=== PATIENT | female | born 1950 | race African-American/Black ===

== ENCOUNTER 2018-07-17 07:19 | Inpatient (IN) ==
[2018-07-17 09:00] LABS: Basophils # 0.1 10*3/uL (0.0-0.2); Basophils % 0.6 % (0.0-0.8); Eosinophils # 0.1 10*3/uL (0.0-0.87); Eosinophils % 1.4 % (0.00-10.9); Hematocrit 40.2 VOL% (35.7-47.0); Hemoglobin 13.2 GM/DL (12.0-16.0); Immature Granulocytes Absolute 0.08 #; Lymphocytes # 1.7 10*3/uL (1.4-4.0); Lymphocytes % 20.4 % (21.3-54.2); Mean Corpuscular HGB Conc 32.8 GM/DL (32-36); Mean Corpuscular Hemoglobin 27 PG (27-34); Mean Corpuscular Volume 82.9 FL (87-102); Mean Platelet Volume 11.1 FL (9.6-12.0); Monocytes # 0.8 10*3/uL (0.11-0.8); Monocytes % 9.3 % (1.7-12.7); Neutrophils # 5.6 10*3/uL (1.4-7.4); Neutrophils % 67.3 % (38.7-73.9); Platelet Count 273 T/CUMM (130-400); Red Blood Count 4.85 MC/CUMM (3.8-5.5); Red Cell Distribution Width 13.9 % (9.3-17.3); White Blood Count 8.4 T/CUMM (4-12)
[2018-07-17 09:29] LABS: Calcium 9.3 MG/DL (8.5-10.1); Osmolality,Calculated 283.3 MOS/KG (273-304); Potassium 3.7 MMOL/L (3.5-5.1)
[2018-07-17] MEDS ORDERED: ACETAMINOPHEN 500 MG TABLET PO STA (09:29)
[2018-07-17 10:02] LABS: Apearance,Urine Slightly Hazy (Clear); Bacteria,Urine Many /HPF (Few); Bilirubin,Urine Negative (Negative); Blood, Urine Moderate mg/dL (Negative); Glucose,Urine (UA) Negative (Negative); Ketones,Urine Negative (Negative); Mucus,Urine Occasional /LPF (Occasional); Nitrite,Urine Positive (Negative); Protein,Urine Negative; RBC,Urine 3 /HPF (0-4); Urine Color Yellow (Yellow); Urine Specific Gravity 1.016 (1.001-1.035); Urine Urobilinogen < 2.0 EU/DL (0.2-1.0); WBC,Urine 12 /HPF (0-6)
[2018-07-17 10:05] LABS: Barbiturates Screen,Urine Negative (Negative); Benzodiazepines Screen,Urine Negative (Negative); Cannabinoid Screen,Urine Negative (Negative); Opiate Screen,Urine Negative (Negative); Phencyclidine Screen,Urine Negative (Negative)
[2018-07-17] MEDS ORDERED: hydrALAZINE 20 MG/1 ML VIAL IV STA (13:51)
[2018-07-17] MEDS ORDERED: ONDANSETRON 4 MG/2 ML VIAL IV PRN (15:25)
[2018-07-17] MEDS ORDERED: LABETALOL 20 MG/4 ML SYRINGE IV PRN (15:28)
[2018-07-17] MEDS ORDERED: ENOXAPARIN 40 MG/0.4 ML SYRINGE SUBCUT SCH (15:30)
[2018-07-17 17:02] LABS: Risk Ratio 2.71; VLDL CHOLESTEROL 21.8 MG/DL
[2018-07-17] MEDS: SODIUM CHLORIDE 0.9% 1,000 ML IV SCH (17:12)
[2018-07-17] MEDS: ASPIRIN 325 MG TABLET PO SCH (17:22)
[2018-07-17] MEDS: ATORVASTATIN 20 MG TABLET PO SCH (17:22)
[2018-07-17] MEDS: cefTRIAXone 1,000 MG in SYRINGE 1 EACH IV SCH (17:23)
[2018-07-17] MEDS: ATENOLOL 50 MG TABLET PO SCH ×2 (19:50→20:02)
[2018-07-17] MEDS: hydrALAZINE 20 MG/1 ML VIAL IV PRN (20:56)
[2018-07-18] MEDS: hydrALAZINE 20 MG/1 ML VIAL IV PRN (04:44)
[2018-07-18] MEDS: SODIUM CHLORIDE 0.9% 1,000 ML IV SCH ×2 (04:47→17:56)
[2018-07-18] MEDS: ACETAMINOPHEN 325 MG TABLET PO PRN ×2 (05:15→08:54)
[2018-07-18 06:29] LABS: Basophils # 0.1 10*3/uL (0.0-0.2); Basophils % 0.7 % (0.0-0.8); Eosinophils # 0.1 10*3/uL (0.0-0.87); Eosinophils % 1.3 % (0.00-10.9); Hematocrit 36.9 VOL% (35.7-47.0); Hemoglobin 12.2 GM/DL (12.0-16.0); Immature Granulocytes % 0.9 %; Immature Granulocytes Absolute 0.08 #; Lymphocytes # 1.9 10*3/uL (1.4-4.0); Lymphocytes % 20.9 % (21.3-54.2); Mean Corpuscular HGB Conc 33.1 GM/DL (32-36); Mean Corpuscular Hemoglobin 27 PG (27-34); Mean Corpuscular Volume 81.8 FL (87-102); Mean Platelet Volume 11.6 FL (9.6-12.0); Monocytes # 0.9 10*3/uL (0.11-0.8); Neutrophils % 66.2 % (38.7-73.9); Platelet Count 280 T/CUMM (130-400); Red Blood Count 4.51 MC/CUMM (3.8-5.5)
[2018-07-18 06:55] LABS: Calcium 8.5 MG/DL (8.5-10.1); Osmolality,Calculated 275.7 MOS/KG (273-304); Potassium 3.3 MMOL/L (3.5-5.1)
[2018-07-18] MEDS: IPRATROPIUM 500 MCG/2.5 ML NEB RESP TX SCH ×4 (07:33→19:05)
[2018-07-18] MEDS: PANTOPRAZOLE 40 MG TABLET PO SCH (08:54)
[2018-07-18] MEDS: ASPIRIN 325 MG TABLET PO SCH (08:54)
[2018-07-18] MEDS: LOSARTAN/HCTZ 50-12.5 MG TABLET PO SCH (08:54)
[2018-07-18] MEDS: ATORVASTATIN 20 MG TABLET PO SCH (08:54)
[2018-07-18] MEDS: ATENOLOL 50 MG TABLET PO SCH ×2 (08:54→20:23)
[2018-07-18] MEDS: FLUTICASONE 50 MCG NASAL SPRAY 16 GM BOTTLE BOTH NARES SCH (08:55)
[2018-07-18] MEDS: POTASSIUM CHLORIDE 20 MEQ TABLET PO PRN ×3 (11:31→15:52)
[2018-07-18] MEDS: CLOPIDOGREL 75 MG TABLET PO SCH (15:52)
[2018-07-18] MEDS: cefTRIAXone 1,000 MG in SYRINGE 1 EACH IV SCH (17:51)
[2018-07-18] MEDS ORDERED: ALUM/MAG/SIMETH/LIDO VISC 1:1 30 ML BOTTLE PO ONE (20:09)
[2018-07-19] MEDS: hydrALAZINE 20 MG/1 ML VIAL IV PRN ×2 (00:55→08:15)
[2018-07-19 06:15] LABS: Basophils % 0.5 % (0.0-0.8); Eosinophils # 0.2 10*3/uL (0.0-0.87); Eosinophils % 2.1 % (0.00-10.9); Hematocrit 37.4 VOL% (35.7-47.0); Hemoglobin 12.2 GM/DL (12.0-16.0); Immature Granulocytes % 0.6 %; Immature Granulocytes Absolute 0.05 #; Lymphocytes # 2.7 10*3/uL (1.4-4.0); Lymphocytes % 31.3 % (21.3-54.2); Mean Corpuscular HGB Conc 32.6 GM/DL (32-36); Mean Corpuscular Hemoglobin 27 PG (27-34); Mean Corpuscular Volume 83.1 FL (87-102); Mean Platelet Volume 11.7 FL (9.6-12.0); Monocytes # 0.9 10*3/uL (0.11-0.8); Monocytes % 10.6 % (1.7-12.7); Neutrophils # 4.7 10*3/uL (1.4-7.4); Neutrophils % 54.9 % (38.7-73.9); Platelet Count 229 T/CUMM (130-400); White Blood Count 8.6 T/CUMM (4-12)
[2018-07-19 06:33] LABS: Calcium 7.7 MG/DL (8.5-10.1); Potassium 3.6 MMOL/L (3.5-5.1)
[2018-07-19] MEDS: IPRATROPIUM 500 MCG/2.5 ML NEB RESP TX SCH ×4 (07:01→19:49)
[2018-07-19] MEDS: CLOPIDOGREL 75 MG TABLET PO SCH (08:12)
[2018-07-19] MEDS: ASPIRIN 325 MG TABLET PO SCH (08:12)
[2018-07-19] MEDS: PANTOPRAZOLE 40 MG TABLET PO SCH (08:12)
[2018-07-19] MEDS: ATENOLOL 50 MG TABLET PO SCH ×2 (08:12→20:14)
[2018-07-19] MEDS: LOSARTAN/HCTZ 50-12.5 MG TABLET PO SCH (08:12)
[2018-07-19] MEDS: ATORVASTATIN 20 MG TABLET PO SCH (08:12)
[2018-07-19] MEDS: FLUTICASONE 50 MCG NASAL SPRAY 16 GM BOTTLE BOTH NARES SCH (08:21)
[2018-07-19] MEDS: hydrALAZINE 25 MG TABLET PO SCH ×2 (10:48→20:14)
[2018-07-19] MEDS: SODIUM CHLORIDE 0.9% 1,000 ML IV SCH ×2 (16:15→21:00)
[2018-07-19] MEDS: cefTRIAXone 1,000 MG in SYRINGE 1 EACH IV SCH (16:28)
[2018-07-19] MEDS: ACETAMINOPHEN 325 MG TABLET PO PRN (18:26)
[2018-07-20] MEDS: hydrALAZINE 20 MG/1 ML VIAL IV PRN (04:46)
[2018-07-20] MEDS: IPRATROPIUM 500 MCG/2.5 ML NEB RESP TX SCH ×3 (07:20→13:45)
[2018-07-20] MEDS: PANTOPRAZOLE 40 MG TABLET PO SCH (09:27)
[2018-07-20] MEDS: hydrALAZINE 25 MG TABLET PO SCH (09:27)
[2018-07-20] MEDS: ATORVASTATIN 20 MG TABLET PO SCH (09:27)
[2018-07-20] MEDS: ATENOLOL 50 MG TABLET PO SCH (09:27)
[2018-07-20] MEDS: LOSARTAN/HCTZ 50-12.5 MG TABLET PO SCH (09:27)
[2018-07-20] MEDS: CLOPIDOGREL 75 MG TABLET PO SCH (09:27)
[2018-07-20] MEDS: ASPIRIN 325 MG TABLET PO SCH (09:27)
[2018-07-20] MEDS: FLUTICASONE 50 MCG NASAL SPRAY 16 GM BOTTLE BOTH NARES SCH (09:35)
[2018-07-20] MEDS ORDERED: TUBERCULIN SKIN TEST 0.1 ML SYRINGE INTRADERM ONE (11:00)
[2018-07-20 16:47] VITALS: BP 167/77
== END 2018-07-20 19:30 | DRG 65 ==
LOC: N.EDINP 07:19 → N.ED 07:19 → SUATTDRO 15:25 → N.2E 15:42
PROVIDERS: ADMIT Internal Medicine; ATTEND Internal Medicine

== ENCOUNTER 2018-10-17 03:05 | Inpatient (IN) ==
[2018-10-17 03:34] LABS: Basophils % 0.1 % (0.0-0.8); Hematocrit 32.3 VOL% (35.7-47.0); Immature Granulocytes % 0.8 %; Immature Granulocytes Absolute 0.06 #; Lymphocytes # 1.1 10*3/uL (1.4-4.0); Lymphocytes % 14.7 % (21.3-54.2); Mean Corpuscular HGB Conc 34.1 GM/DL (32-36); Mean Corpuscular Hemoglobin 28 PG (27-34); Mean Platelet Volume 11.3 FL (9.6-12.0); Monocytes # 0.4 10*3/uL (0.11-0.8); Monocytes % 4.8 % (1.7-12.7); Neutrophils # 6.1 10*3/uL (1.4-7.4); Neutrophils % 79.6 % (38.7-73.9); Platelet Count 300 T/CUMM (130-400); Red Blood Count 3.89 MC/CUMM (3.8-5.5); White Blood Count 7.7 T/CUMM (4-12)
[2018-10-17] MEDS ORDERED: levETIRAcetam 500 MG/5 ML VIAL IV ONE (03:34)
[2018-10-17 03:47] LABS: Apearance,Urine Slightly Hazy (Clear); Bilirubin,Urine Negative (Negative); Blood, Urine Negative (Negative); Glucose,Urine (UA) Negative (Negative); Hyaline Casts,Urine 17 /LPF (0-3); Ketones,Urine 5 mg/dL (Negative); Mucus,Urine Occasional /LPF (Occasional); Nitrite,Urine Negative (Negative); Protein,Urine Negative; RBC,Urine 1 /HPF (0-4); Squamous Epithelial Cell,Urine Occasional /HPF (0-10); Urine Color Yellow (Yellow); Urine Specific Gravity 1.012 (1.001-1.035); Urine Urobilinogen < 2.0 EU/DL (0.2-1.0); WBC,Urine 4 /HPF (0-6)
[2018-10-17 03:48] LABS: Albumin 3.4 G/DL (3.4-5.0); Bilirubin,Total 0.7 MG/DL (0.2-1.0); Calcium 9.2 MG/DL (8.5-10.1); Potassium 2.7 MMOL/L (3.5-5.1); Total Protein 6.9 G/DL (6.4-8.3)
[2018-10-17] MEDS ORDERED: LORazepam 2 MG/1 ML VIAL ONE (03:57)
[2018-10-17] MEDS ORDERED: LORazepam 2 MG/1 ML VIAL IV STA (03:57)
[2018-10-17] MEDS ORDERED: ONDANSETRON 4 MG/2 ML VIAL ONE (04:00)
[2018-10-17 04:05] LABS: Barbiturates Screen,Urine Negative (Negative); Benzodiazepines Screen,Urine Positive (Negative); Cannabinoid Screen,Urine Negative (Negative); Opiate Screen,Urine Negative (Negative); Phencyclidine Screen,Urine Negative (Negative)
[2018-10-17] MEDS ORDERED: ONDANSETRON 4 MG/2 ML VIAL IV PRN (04:53)
[2018-10-17] MEDS ORDERED: traMADol 50 MG TABLET PO PRN (04:57)
[2018-10-17] MEDS ORDERED: SODIUM CHLORIDE 0.9% 1,000 ML IV SCH (05:00)
[2018-10-17] MEDS ORDERED: MAGNESIUM SULF RIDER 2 GM in PREMIX 1 EACH IV PRN (05:04)
[2018-10-17] MEDS ORDERED: MAGNESIUM SULF RIDER 4 GM in PREMIX 1 EACH IV PRN (05:04)
[2018-10-17] MEDS ORDERED: LORazepam 2 MG/1 ML VIAL IV PRN (05:05)
[2018-10-17] MEDS: ENOXAPARIN 40 MG/0.4 ML SYRINGE SUBCUT SCH (06:32)
[2018-10-17] MEDS: POTASSIUM CHLORIDE RIDER 10 MEQ in PREMIX 1 EACH IV SCH ×4 (06:36→11:18)
[2018-10-17] MEDS: SODIUM CHLOR 0.9% KCL 40 MEQ 40 MEQ/1,000 ML BAG IV SCH ×2 (08:53→22:22)
[2018-10-17] MEDS: hydrALAZINE 25 MG TABLET PO SCH ×2 (08:58→20:45)
[2018-10-17] MEDS: ASPIRIN 325 MG TABLET PO SCH (08:58)
[2018-10-17] MEDS: LOSARTAN/HCTZ 50-12.5 MG TABLET PO SCH (08:58)
[2018-10-17] MEDS: ATENOLOL 50 MG TABLET PO SCH ×2 (08:59→20:45)
[2018-10-17] MEDS: PANTOPRAZOLE 40 MG TABLET PO SCH (08:59)
[2018-10-17] MEDS: POTASSIUM CHLORIDE 10 MEQ TABLET PO SCH ×2 (08:59→20:45)
[2018-10-17] MEDS: CLOPIDOGREL 75 MG TABLET PO SCH (09:00)
[2018-10-17] MEDS ORDERED: MEGESTROL 400 MG/10 ML UDCUP PO SCH (09:00)
[2018-10-17] MEDS ORDERED: ATORVASTATIN 20 MG TABLET PO SCH (09:00)
[2018-10-17] MEDS: FLUTICASONE 50 MCG NASAL SPRAY 16 GM BOTTLE BOTH NARES SCH (09:04)
[2018-10-17] MEDS: ATORVASTATIN 40 MG TABLET PO SCH (20:45)
[2018-10-17] MEDS: traZODone 50 MG TABLET PO SCH (21:11)
[2018-10-18] MEDS ORDERED: ACETAMINOPHEN 325 MG TABLET PO PRN (01:54)
[2018-10-18] MEDS: ENOXAPARIN 40 MG/0.4 ML SYRINGE SUBCUT SCH (05:40)
[2018-10-18 06:06] LABS: Basophils % 0.4 % (0.0-0.8); Eosinophils % 0.1 % (0.00-10.9); Hematocrit 28.8 VOL% (35.7-47.0); Hemoglobin 9.5 GM/DL (12.0-16.0); Immature Granulocytes % 0.4 %; Immature Granulocytes Absolute 0.04 #; Lymphocytes # 2.9 10*3/uL (1.4-4.0); Lymphocytes % 27.8 % (21.3-54.2); Mean Corpuscular Hemoglobin 28 PG (27-34); Mean Corpuscular Volume 85.5 FL (87-102); Mean Platelet Volume 11.8 FL (9.6-12.0); Monocytes # 0.7 10*3/uL (0.11-0.8); Monocytes % 6.4 % (1.7-12.7); Neutrophils # 6.9 10*3/uL (1.4-7.4); Neutrophils % 64.9 % (38.7-73.9); Platelet Count 281 T/CUMM (130-400); Red Blood Count 3.37 MC/CUMM (3.8-5.5); Red Cell Distribution Width 14.3 % (9.3-17.3); White Blood Count 10.6 T/CUMM (4-12)
[2018-10-18 06:24] LABS: Calcium 8.5 MG/DL (8.5-10.1); Osmolality,Calculated 279.3 MOS/KG (273-304); Potassium 4.1 MMOL/L (3.5-5.1)
[2018-10-18 06:25] LABS: Risk Ratio 1.66; VLDL CHOLESTEROL 13.6 MG/DL
[2018-10-18 06:26] LABS: Albumin 2.8 G/DL (3.4-5.0); Bilirubin,Total 0.8 MG/DL (0.2-1.0); Calcium 8.6 MG/DL (8.5-10.1); Osmolality,Calculated 277.4 MOS/KG (273-304); Potassium 4.1 MMOL/L (3.5-5.1); Total Protein 5.6 G/DL (6.4-8.3)
[2018-10-18] MEDS: SODIUM CHLOR 0.9% KCL 40 MEQ 40 MEQ/1,000 ML BAG IV SCH ×2 (07:31→17:30)
[2018-10-18] MEDS: CLOPIDOGREL 75 MG TABLET PO SCH (08:57)
[2018-10-18] MEDS: PANTOPRAZOLE 40 MG TABLET PO SCH (08:57)
[2018-10-18] MEDS: ASPIRIN 325 MG TABLET PO SCH (08:57)
[2018-10-18] MEDS: LOSARTAN/HCTZ 50-12.5 MG TABLET PO SCH (08:57)
[2018-10-18] MEDS: hydrALAZINE 25 MG TABLET PO SCH ×2 (08:58→21:15)
[2018-10-18] MEDS: ATENOLOL 50 MG TABLET PO SCH ×2 (08:58→21:15)
[2018-10-18] MEDS: POTASSIUM CHLORIDE 10 MEQ TABLET PO SCH ×2 (08:59→21:15)
[2018-10-18] MEDS: FLUTICASONE 50 MCG NASAL SPRAY 16 GM BOTTLE BOTH NARES SCH (09:00)
[2018-10-18] MEDS: traZODone 50 MG TABLET PO SCH (21:15)
[2018-10-18] MEDS: ATORVASTATIN 40 MG TABLET PO SCH (21:15)
[2018-10-19] MEDS: SODIUM CHLOR 0.9% KCL 40 MEQ 40 MEQ/1,000 ML BAG IV SCH (03:51)
[2018-10-19] MEDS: ENOXAPARIN 40 MG/0.4 ML SYRINGE SUBCUT SCH (05:11)
[2018-10-19 05:29] LABS: Basophils % 0.4 % (0.0-0.8); Eosinophils # 0.1 10*3/uL (0.0-0.87); Eosinophils % 0.6 % (0.00-10.9); Hematocrit 31.6 VOL% (35.7-47.0); Hemoglobin 9.8 GM/DL (12.0-16.0); Immature Granulocytes % 0.4 %; Immature Granulocytes Absolute 0.03 #; Lymphocytes # 3.1 10*3/uL (1.4-4.0); Lymphocytes % 38.7 % (21.3-54.2); Mean Corpuscular Hemoglobin 28 PG (27-34); Mean Corpuscular Volume 91.6 FL (87-102); Mean Platelet Volume 11.7 FL (9.6-12.0); Monocytes # 0.7 10*3/uL (0.11-0.8); Monocytes % 9.2 % (1.7-12.7); Neutrophils # 4.1 10*3/uL (1.4-7.4); Neutrophils % 50.7 % (38.7-73.9); Platelet Count 231 T/CUMM (130-400); Red Blood Count 3.45 MC/CUMM (3.8-5.5); Red Cell Distribution Width 14.4 % (9.3-17.3)
[2018-10-19 05:40] LABS: Calcium 8.6 MG/DL (8.5-10.1); Osmolality,Calculated 273.5 MOS/KG (273-304); Potassium 4.8 MMOL/L (3.5-5.1)
[2018-10-19] MEDS: FLUTICASONE 50 MCG NASAL SPRAY 16 GM BOTTLE BOTH NARES SCH (09:04)
[2018-10-19] MEDS: CLOPIDOGREL 75 MG TABLET PO SCH (09:04)
[2018-10-19] MEDS: POTASSIUM CHLORIDE 10 MEQ TABLET PO SCH ×2 (09:04→21:02)
[2018-10-19] MEDS: LOSARTAN/HCTZ 50-12.5 MG TABLET PO SCH (09:05)
[2018-10-19] MEDS: PANTOPRAZOLE 40 MG TABLET PO SCH (09:05)
[2018-10-19] MEDS: ATENOLOL 50 MG TABLET PO SCH ×2 (09:05→21:02)
[2018-10-19] MEDS: ASPIRIN 325 MG TABLET PO SCH (09:05)
[2018-10-19] MEDS: hydrALAZINE 25 MG TABLET PO SCH ×2 (09:05→21:02)
[2018-10-19] MEDS: ATORVASTATIN 40 MG TABLET PO SCH (21:01)
[2018-10-19] MEDS: levETIRAcetam 500 MG TABLET PO SCH (21:02)
[2018-10-19] MEDS: traZODone 50 MG TABLET PO SCH (21:02)
[2018-10-20] MEDS: ENOXAPARIN 40 MG/0.4 ML SYRINGE SUBCUT SCH (07:18)
[2018-10-20] MEDS: hydrALAZINE 25 MG TABLET PO SCH (08:30)
[2018-10-20] MEDS: ASPIRIN 325 MG TABLET PO SCH (08:30)
[2018-10-20] MEDS: ATENOLOL 50 MG TABLET PO SCH (08:30)
[2018-10-20] MEDS: LOSARTAN/HCTZ 50-12.5 MG TABLET PO SCH (08:30)
[2018-10-20] MEDS: levETIRAcetam 500 MG TABLET PO SCH (08:30)
[2018-10-20] MEDS: POTASSIUM CHLORIDE 10 MEQ TABLET PO SCH (08:30)
[2018-10-20] MEDS: PANTOPRAZOLE 40 MG TABLET PO SCH (08:30)
[2018-10-20] MEDS: FLUTICASONE 50 MCG NASAL SPRAY 16 GM BOTTLE BOTH NARES SCH (08:30)
[2018-10-20] MEDS: CLOPIDOGREL 75 MG TABLET PO SCH (08:52)
[2018-10-20 11:20] VITALS: BP 138/64
== END 2018-10-20 11:55 | disposition home health service (06) | DRG 65 ==
LOC: EDUNIT# → N.ED 03:05 → N.EDINP 03:05 → N.3E 05:37
PROVIDERS: ADMIT Internal Medicine; ATTEND Internal Medicine

== ENCOUNTER 2018-12-14 06:22 | Observation (INO) ==
[2018-12-14 06:59] LABS: Basophils # 0.1 10*3/uL (0.0-0.2); Basophils % 0.5 % (0.0-0.8); Eosinophils # 0.1 10*3/uL (0.0-0.87); Eosinophils % 0.4 % (0.00-10.9); Hematocrit 36.2 VOL% (35.7-47.0); Hemoglobin 12.1 GM/DL (12.0-16.0); Immature Granulocytes % 1.4 %; Immature Granulocytes Absolute 0.16 #; Lymphocytes # 3.9 10*3/uL (1.4-4.0); Lymphocytes % 33.2 % (21.3-54.2); Mean Corpuscular HGB Conc 33.4 GM/DL (32-36); Mean Corpuscular Volume 85.6 FL (87-102); Mean Platelet Volume 10.8 FL (9.6-12.0); Monocytes % 7.7 % (1.7-12.7); Neutrophils % 56.8 % (38.7-73.9); Platelet Count 328 T/CUMM (130-400); Red Blood Count 4.23 MC/CUMM (3.8-5.5); Red Cell Distribution Width 13.8 % (9.3-17.3); White Blood Count 11.6 T/CUMM (4-12)
[2018-12-14 07:09] LABS: Calcium 9.7 MG/DL (8.5-10.1); Osmolality,Calculated 279.5 MOS/KG (273-304)
[2018-12-14] MEDS ORDERED: levETIRAcetam 500 MG/5 ML VIAL IV ONE (07:10)
[2018-12-14] MEDS ORDERED: MAGNESIUM SULF RIDER 2 GM in PREMIX 1 EACH IV STA (07:56)
[2018-12-14 08:21] LABS: Barbiturates Screen,Urine Negative (Negative); Benzodiazepines Screen,Urine Negative (Negative); Cannabinoid Screen,Urine Negative (Negative); Opiate Screen,Urine Negative (Negative); Phencyclidine Screen,Urine Negative (Negative)
[2018-12-14] MEDS ORDERED: LORazepam 2 MG/1 ML VIAL IV STA (08:50)
[2018-12-14] MEDS ORDERED: MORPHINE 4 MG/1 ML VIAL IV PRN (09:37)
[2018-12-14] MEDS ORDERED: SODIUM CHLORIDE 0.9% 1,000 ML IV SCH (10:00)
[2018-12-14] MEDS ORDERED: LORazepam 2 MG/1 ML VIAL IV PRN (12:18)
[2018-12-14] MEDS ORDERED: hydrALAZINE 20 MG/1 ML VIAL IV PRN (12:19)
[2018-12-14] MEDS ORDERED: HEPARIN 5,000 UNIT/1 ML VIAL SUBCUT SCH (12:30)
[2018-12-14 13:05] LABS: Apearance,Urine CLEAR (Clear); Bacteria,Urine Occasional /HPF (Few); Bilirubin,Urine Negative (Negative); Blood, Urine Negative (Negative); Glucose,Urine (UA) Negative (Negative); Hyaline Casts,Urine 7 /LPF (0-3); Ketones,Urine Negative (Negative); Mucus,Urine Occasional /LPF (Occasional); Nitrite,Urine Negative (Negative); Protein,Urine Negative; RBC,Urine <1 /HPF (0-4); Squamous Epithelial Cell,Urine Occasional /HPF (0-10); Urine Color Yellow (Yellow); Urine Specific Gravity 1.011 (1.001-1.035); Urine Urobilinogen < 2.0 EU/DL (0.2-1.0); WBC,Urine <1 /HPF (0-6)
[2018-12-14] MEDS ORDERED: POTASSIUM CHLORIDE 10 MEQ TABLET PO SCH (21:00)
[2018-12-14] MEDS ORDERED: levETIRAcetam 500 MG TABLET PO SCH (21:00)
[2018-12-14] MEDS: POTASSIUM CHLORIDE 20 MEQ TABLET PO SCH (22:21)
[2018-12-14] MEDS: ATENOLOL 50 MG TABLET PO SCH (22:21)
[2018-12-14] MEDS: ATORVASTATIN 40 MG TABLET PO SCH (22:21)
[2018-12-14] MEDS: MAGNESIUM CHLORIDE 64 MG TABLET PO SCH (22:21)
[2018-12-15 04:26] LABS: Basophils # 0.1 10*3/uL (0.0-0.2); Basophils % 0.5 % (0.0-0.8); Eosinophils # 0.1 10*3/uL (0.0-0.87); Eosinophils % 0.5 % (0.00-10.9); Hematocrit 35.5 VOL% (35.7-47.0); Hemoglobin 11.7 GM/DL (12.0-16.0); Immature Granulocytes % 1.5 %; Immature Granulocytes Absolute 0.16 #; Lymphocytes # 3.1 10*3/uL (1.4-4.0); Lymphocytes % 27.8 % (21.3-54.2); Mean Corpuscular Volume 86.6 FL (87-102); Mean Platelet Volume 10.9 FL (9.6-12.0); Neutrophils % 60.7 % (38.7-73.9); Platelet Count 288 T/CUMM (130-400); Red Cell Distribution Width 13.9 % (9.3-17.3)
[2018-12-15 04:59] LABS: Albumin 3.3 G/DL (3.4-5.0); Bilirubin,Total 0.9 MG/DL (0.2-1.0); Calcium 9.3 MG/DL (8.5-10.1); Osmolality,Calculated 281.3 MOS/KG (273-304); Total Protein 6.6 G/DL (6.4-8.3)
[2018-12-15] MEDS: ATENOLOL 50 MG TABLET PO SCH ×2 (09:48→23:11)
[2018-12-15] MEDS: FLUTICASONE 50 MCG NASAL SPRAY 16 GM BOTTLE BOTH NARES SCH (09:48)
[2018-12-15] MEDS: ASPIRIN 325 MG TABLET PO SCH (09:48)
[2018-12-15] MEDS: LOSARTAN/HCTZ 50-12.5 MG TABLET PO SCH (09:48)
[2018-12-15] MEDS: MAGNESIUM CHLORIDE 64 MG TABLET PO SCH ×2 (09:49→23:11)
[2018-12-15] MEDS: PANTOPRAZOLE 40 MG TABLET PO SCH (09:49)
[2018-12-15] MEDS: CLOPIDOGREL 75 MG TABLET PO SCH (09:49)
[2018-12-15] MEDS: MEGESTROL 400 MG/10 ML UDCUP PO SCH (09:49)
[2018-12-15] MEDS: POTASSIUM CHLORIDE 20 MEQ TABLET PO SCH ×2 (09:49→23:09)
[2018-12-15] MEDS: levETIRAcetam 250 MG TABLET PO SCH (23:09)
[2018-12-15] MEDS: ATORVASTATIN 40 MG TABLET PO SCH (23:09)
[2018-12-16 05:28] LABS: Basophils # 0.1 10*3/uL (0.0-0.2); Basophils % 0.6 % (0.0-0.8); Eosinophils # 0.1 10*3/uL (0.0-0.87); Eosinophils % 0.6 % (0.00-10.9); Hematocrit 32.4 VOL% (35.7-47.0); Hemoglobin 10.7 GM/DL (12.0-16.0); Immature Granulocytes % 1.3 %; Immature Granulocytes Absolute 0.14 #; Lymphocytes # 2.8 10*3/uL (1.4-4.0); Lymphocytes % 25.2 % (21.3-54.2); Mean Corpuscular Volume 86.4 FL (87-102); Mean Platelet Volume 11.1 FL (9.6-12.0); Monocytes % 10.3 % (1.7-12.7); Platelet Count 310 T/CUMM (130-400); Red Blood Count 3.75 MC/CUMM (3.8-5.5); Red Cell Distribution Width 14.1 % (9.3-17.3); White Blood Count 11.2 T/CUMM (4-12)
[2018-12-16 05:35] LABS: Albumin 3.1 G/DL (3.4-5.0); Bilirubin,Total 1.4 MG/DL (0.2-1.0); Calcium 9.4 MG/DL (8.5-10.1); Total Protein 6.5 G/DL (6.4-8.3)
[2018-12-16] MEDS: MEGESTROL 400 MG/10 ML UDCUP PO SCH (09:05)
[2018-12-16] MEDS: levETIRAcetam 250 MG TABLET PO SCH (09:09)
[2018-12-16] MEDS: POTASSIUM CHLORIDE 20 MEQ TABLET PO SCH (09:09)
[2018-12-16] MEDS: ATENOLOL 50 MG TABLET PO SCH (09:10)
[2018-12-16] MEDS: ASPIRIN 325 MG TABLET PO SCH (09:10)
[2018-12-16] MEDS: PANTOPRAZOLE 40 MG TABLET PO SCH (09:10)
[2018-12-16] MEDS: LOSARTAN/HCTZ 50-12.5 MG TABLET PO SCH (09:10)
[2018-12-16] MEDS: MAGNESIUM CHLORIDE 64 MG TABLET PO SCH (09:10)
[2018-12-16] MEDS: CLOPIDOGREL 75 MG TABLET PO SCH (09:10)
[2018-12-16] MEDS: FLUTICASONE 50 MCG NASAL SPRAY 16 GM BOTTLE BOTH NARES SCH (09:36)
[2018-12-16 12:23] VITALS: BP 102/61
== END 2018-12-16 14:32 | disposition hospice, home (50) ==
LOC: EDBD → EDUNIT# → N.ED 06:22 → N.EDINP 06:22 → N.2E 15:11
PROVIDERS: ADMIT Internal Medicine; ATTEND Internal Medicine